=== PATIENT | male | born 1975 | race African-American/Black ===

== ENCOUNTER → 2016-10-14 | Outpatient (CLI) | payer OTHER ==
[2016-10-14 12:06] LABS: VENOUS BASE EXCESS 2.6 (-2.0-2.0); VENOUS O2 SATURATION 61.4 % (60.0-80.0); VENOUS PARTIAL PRESSURE CO2 55.5 mmHg (38.0-50.0); VENOUS PARTIAL PRESSURE O2 32.6 mmHg (30.0-50.0); VENOUS STANDARD HCO3 25.8 MEQ/L; VENOUS TOTAL CO2 31.3 MEQ/L (24.0-28.0)
== END ==
LOC: M LAB 11:06
PROVIDERS: ATTEND Internal Medicine Nephrology
DX: E87.3 Alkalosis (principal); I15.0 Renovascular hypertension

== ENCOUNTER → 2016-10-25 | Outpatient (CLI) | payer OTHER ==
[~2016-10-25] MED LIST: ISOVUE-370 76% 100ML VIAL (Q9967) As Ordered ONE
--- NOTE | 2016-10-25 17:20 | REP ---
CT abdomen and pelvis without and with IV contrast: CT urogram. History: Hematuria. No comparison studies. CT contrast dose: 100 ml of Isovue 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 The lung bases show some mild linear fibrosis in the right middle lobe. Lung bases are otherwise clear. No pleural effusion is seen. The liver and the spleen are normal in size and homogeneous in texture. No adrenal lesion is seen on either side. Pancreas is unremarkable. Gallbladder shows no abnormality. The kidneys enhance symmetrically. There is a 1.1 cm cyst in the upper pole of the right kidney and two tiny cysts are seen in the left mid kidney, the largest of these measures 6 mm. No renal mass lesion is observed. Delayed images show no filling defect in the collecting system of either kidney. Ureters describe a normal course to the bladder. No bladder filling defect is seen. No retroperitoneal mass or adenopathy is seen. No pelvic mass or adenopathy is noted. No abdominal wall defect is seen. Bone window settings show no bony destructive lesion. Incidental note is made of three tiny hyperdense foci in the lumen of the appendix consistent with appendicoliths. No periappendiceal inflammation is seen. The appendix is 9 mm in diameter. Impression: Small bilateral renal cysts noted. No evidence of renal calculus, mass or obstructive uropathy. Incidental appendicoliths. Appendix borderline in diameter, but no periappendiceal inflammation seen. Signed by Jacob Chakraborty MD 10/25/2016 10:14 P
== END ==
LOC: M RAD 15:45
PROVIDERS: ATTEND Internal Medicine Nephrology
DX: R31.9 Hematuria, unspecified (principal); N28.1 Cyst of kidney, acquired
CPT/HCPCS: 74178; Q9967

== ENCOUNTER → 2017-07-08 | Outpatient (REF) | payer OTHER | LOC: M SMT 12:58 | PROVIDERS: ATTEND Nurse Practitioner Women's Health | DX: R31.29 Other microscopic hematuria (principal) ==

== ENCOUNTER → 2017-09-01 | Outpatient (CLI) | payer OTHER | LOC: M LAB 12:06 | PROVIDERS: ATTEND Physician Assistant Medical | DX: I10 Essential (primary) hypertension (principal) ==

== ENCOUNTER → 2018-02-27 | Outpatient (CLI) | payer OTHER ==
[2018-02-27 11:02] LABS: EOS # 0.2 10^3/uL (0.0-0.50); EOS % 3.8 % (0.0-3.0); HEMATOCRIT 44.3 % (42.0-52.0); HEMOGLOBIN 14.8 g/dl (13.5-17.5); LYMPH % 46.8 % (24.0-44.0); MEAN CORPUSCULAR HEMOGLOBIN 26.7 pg (27.0-33.0); MEAN CORPUSCULAR HGB CONC 33.4 g/dl (32.0-36.5); MONO # 0.2 10^3/uL (0.0-0.8); MONO % 5.7 % (0.0-5.0); NEUTROPHILS # 1.8 10^3/uL (1.8-7.7); NEUTROPHILS % 42.7 % (36.0-66.0); PLATELET COUNT, AUTOMATED 342 10^3/uL (150-450); RED BLOOD COUNT 5.54 10^6/uL (4.30-6.10); RED CELL DISTRIBUTION WIDTH 13.4 % (11.5-14.5); WHITE BLOOD COUNT 4.2 10^3/uL (4.0-10.0)
[2018-02-27 11:30] LABS: ANION GAP 6 MEQ/L (8-16); BLOOD UREA NITROGEN 16 MG/DL (7-18); CALCIUM LEVEL 9.5 MG/DL (8.5-10.1); CARBON DIOXIDE LEVEL 29 MEQ/L (21-32); CHLORIDE LEVEL 106 MEQ/L (98-107); CREATININE FOR GFR 0.99 MG/DL (0.70-1.30); GLOMERULAR FILTRATION RATE > 60.0 (>60); GLUCOSE, FASTING 106 MG/DL (70-100); POTASSIUM SERUM 4.7 MEQ/L (3.5-5.1); SODIUM LEVEL 141 MEQ/L (136-145)
== END ==
LOC: M LAB 10:23
DX: I10 Essential (primary) hypertension (principal)
CPT/HCPCS: 80048